=== PATIENT | female | born 1980 | race Caucasian/White ===

== ENCOUNTER 2017-07-30 14:19 | Emergency (ER) | payer MEDICAID ==
[~2017-07-30] VITALS: Ht 162.6 cm; Wt 59.0 kg
--- NOTE | 2017-07-30 14:19 | NUR ---
BROUGHT BACK TO BED #5 AND TRIAGED. REPORT GIVEN TO MY
[2017-07-30 14:20] VITALS: BP_SYST 118
--- NOTE | 2017-07-30 14:35 | NUR ---
37year old female presented to ED with complaints of productive cough x 1wk; reports sputum is yellow in color; Mucinex 1tab taken last nite with no relief; pt reports feeling "wheezy"; VSS and sitting comfortably in bed 5; awaiting MD to assess and eval
--- NOTE | 2017-07-30 14:55 | NUR ---
Dr. Oviedo at bedside for assess/eval
[2017-07-30 15:20] VITALS: BP_SYST 118
--- NOTE | 2017-07-30 15:20 | NUR ---
Patient given written and verbal discharge instructions and verbalizes understanding. ER MD discussed with patient the results and treatment provided. Patient in stable condition. ID arm band removed. Rx of Azithromycin given. Patient educated on pain management and to follow up with PMD within 2-3days; pt reports pain improved 6/10; no interventions required at this time; MD and pt agreeable to discharge home. Opportunity for questions provided and answered.
== END 2017-07-30 15:20 | disposition home or self-care (01) ==
LOC: SED 14:19
DX: J20.9 Acute bronchitis, unspecified (principal)
CPT/HCPCS: 99283